=== PATIENT | female | born 1935 | race Hispanic/Latino ===

== ENCOUNTER 2019-08-06 07:50 | Inpatient (IN) | payer MEDICARE ==
[2019-08-06 08:55] LABS: Basophils % (Auto) 0.6 % (0.0-1.8); Eosinophils # (Auto) 0.1 K/mm3 (0.0-0.4); Eosinophils % (Auto) 2.8 % (0.0-4.3); Hematocrit 42.8 % (30.3-42.9); Hemoglobin 14.6 gm/dl (10.1-14.3); Lymphocytes # (Auto) 0.5 K/mm3 (1.2-5.4); Lymphocytes % (Auto) 10.9 % (13.4-35.0); Mean Corpuscular HGB Conc 34 % (30-34); Mean Corpuscular Volume 101 fl (79-97); Monocytes # (Auto) 0.3 K/mm3 (0.0-0.8); Monocytes % (Auto) 7.2 % (0.0-7.3); Red Blood Count 4.24 M/mm3 (3.65-5.03); Red Cell Distribution Width 14.2 % (13.2-15.2)
[2019-08-06] MEDS ORDERED: ONDANSETRON 4 MG/2 ML INJ IV ONE (09:02)
[2019-08-06] MEDS ORDERED: MORPHINE 2 MG/1 ML INJ IV ONE ×2 (09:02→12:08)
--- NOTE | 2019-08-06 09:03 | XRay Report ---
CHEST 1 VIEW INDICATION / CLINICAL INFORMATION: Chest Pain. COMPARISON: None available. FINDINGS: SUPPORT DEVICES: None. HEART / MEDIASTINUM: The thoracic aorta appears tortuous. Atherosclerotic calcifications are noted in the aortic arch. Surgical clips project over the right aspect of the mediastinum. LUNGS / PLEURA: There is diffuse interstitial disease in the lungs bilaterally. This could represent diffuse edema. I suspect that there is a chronic component. There is mild blunting of the right costophrenic angle characteristic of pleural thickening. There is some pleural thickening along the minor fissure on the right. .. No pneumothorax. ADDITIONAL FINDINGS: No significant additional findings. IMPRESSION: 1. There is diffuse interstitial disease in the lungs. This could represent pulmonary edema. I suspec t at least some component of this is chronic. Signer Name: Jimmie Monet MD Signed: 08/06/2019 8:59 AM Workstation Name: [id number]
[2019-08-06 09:05] LABS: INR 1.01 (0.87-1.13)
[2019-08-06 09:06] LABS: Partial Thromboplastin Time 33.3 Sec. (24.2-36.6)
--- NOTE | 2019-08-06 09:07 | Emergency Department Report ---
ED Chest Pain HPI - General Chief Complaint: Chest Pain Stated Complaint: CP/ZAN Time Seen by Provider: 08/06/19 08:14 Source: patient, EMS Mode of arrival: Stretcher Limitations: No Limitations - History of Present Illness Initial Comments: This is an 84-year-old female that has a history of COPD on nocturnal O2. Complains of bilateral anterior chest pain right greater than left with radiation to her back associated with shortness of breath at 6:00 this morning. She states that she is not had chest pain like this. She denies any cardiac workup other than having a "stress test when I was 20". She has a history of congestive heart failure. She states that both her legs are swollen. She does not refers significant cough. He does not work sweating nausea or vomiting. MD Complaint: chest pain -: Gradual, hour(s) Onset: during rest Pain Location: left chest, right chest Pain Radiation: back Severity scale (0 -10): 8 Quality: dull Consistency: constant Improves With: nothing Worsens With: nothing re: dyspnea Other Symptoms: denies: cough, fever, syncope Treatments Prior to Arrival: none - Related Data Allergies Allergy/AdvReac Type Severity Reaction Status Date / Time No Known Allergies Allergy Unverified 08/06/19 08:10 Heart Score - HEART Score History: Moderately suspicious EKG: Normal Age: > 65 Risk factors: > 3 risk factors or hx of atherosclerotic disease Troponin: < normal limit HEART Score: 5 - Critical Actions Critical Actions: 4-6 pts:12-16.6% risk of adverse cardiac event. Should be admitted ED Review of Systems ROS: Stated complaint: CP/ZAN Other details as noted in HPI Constitutional: denies: chills, fever Eyes: denies: eye pain, eye discharge, vision change ENT: denies: ear pain, throat pain Respiratory: shortness of breath. denies: cough Cardiovascular: chest pain, edema. denies: palpitations Endocrine: no symptoms reported Gastrointestinal: denies: abdominal pain, nausea, diarrhea Genitourinary: denies: urgency, dysuria, discharge Musculoskeletal: denies: back pain, joint swelling, arthralgia Skin: denies: rash, lesions Neurological: denies: headache, weakness, paresthesias Psychiatric: denies: anxiety, depression Hematological/Lymphatic: denies: easy bleeding, easy bruising ED Past Medical Hx - Past Medical History Previous Medical History?: Yes Hx Congestive Heart Failure: Yes Hx COPD: Yes - Surgical History Past Surgical History?: Yes Additional Surgical History: Right lung partial lobectomy (1/3 of lung removed) - Social History Smoking Status: Current Every Day Smoker Substance Use Type: None ED Physical Exam - General Limitations: No Limitations General appearance: alert, in no apparent distress, cachectic - Head Head exam: Present: atraumatic, normocephalic - Eye Eye exam: Present: normal appearance. Absent: scleral icterus - ENT ENT exam: Present: mucous membranes moist - Neck Neck exam: Present: normal inspection. Absent: tenderness, meningismus - Respiratory Respiratory exam: Present: normal lung sounds bilaterally. Absent: respiratory distress - Cardiovascular Cardiovascular Exam: Present: regular rate, normal rhythm. Absent: systolic murmur, diastolic murmur, rubs, gallop - GI/Abdominal GI/Abdominal exam: Present: soft, normal bowel sounds. Absent: distended, tenderness, guarding, rebound, rigid - Extremities Exam Extremities exam: Present: other (bilateral edema to the knees with pretibial erythema) - Back Exam Back exam: Present: normal inspection - Neurological Exam Neurological exam: Present: alert, oriented X3, CN II-XII intact. Absent: motor sensory deficit - Psychiatric Psychiatric exam: Present: anxious, flat affect - Skin Skin exam: Present: warm, dry, intact, normal color. Absent: rash ED Course Vital Signs 08/06/19 08/06/19 08/06/19 08:03 08:09 09:00 Temperature 97.8 F Pulse Rate 83 80 Respiratory 20 16 Rate Blood Pressure 139/82 Blood Pressure 138/67 [Right] O2 Sat by Pulse 91 91 95 Oximetry 08/06/19 08/06/19 08/06/19 09:13 10:00 11:00 Temperature Pulse Rate 86 84 Respiratory 20 18 Rate Blood Pressure Blood Pressure 122/67 130/71 [Right] O2 Sat by Pulse 97 94 94 Oximetry 08/06/19 12:00 Temperature 97.9 F Pulse Rate 84 Respiratory 20 Rate Blood Pressure Blood Pressure 135/71 [Right] O2 Sat by Pulse 94 Oximetry - Reevaluation(s) Reevaluation #2: Patient's chest x-ray was consistent with pulmonary fibrosis possibly with CHF. The radiologist believed it was consistent with CHF. She was given Lasix. The patient was found to have a very high d-dimer. A CT of the chest has been obtained but was limited secondary to IUD malfunction. The patient did not get a contrast injection. A VQ scan was ordered. Patient is admitted to the hospitalist service for further care and evaluation of her chest pain, CHF, elevated d-dimer. She has been hemodynamically stable. We are awaiting her V/Q scan results. 08/06/19 12:32 SAMAN score - Saman Score Age > 65: (1) Yes Aspirin use within the Past 7 Days: (0) No 3 or more CAD Risk Factors: (1) Yes 2 or more Angina events in past 24 hrs: (0) No Known CAD with more than 50% Stenosis: (0) No Elevated Cardiac Markers: (0) No ST Deviation Greater than 0.5mm: (0) No SAMAN Score: 2 ED Medical Decision Making - Lab Data Result diagrams: 08/06/19 08:16 08/06/19 08:30 Laboratory Results - last 24 hr 08/06/19 08/06/19 08/06/19 08:16 08:30 08:30 WBC 4.5 RBC 4.24 Hgb 14.6 H Hct 42.8 MCV 101 H MCH 35 H MCHC 34 RDW 14.2 Plt Count 217 Lymph % (Auto) 10.9 L [place] % (Auto) 7.2 Eos % (Auto) 2.8 Baso % (Auto) 0.6 Lymph # 0.5 L [place] # 0.3 Eos # 0.1 Baso # 0.0 Seg Neutrophils % 78.5 H Seg Neutrophils # 3.5 PT 13.4 INR 1.01 APTT 33.3 D-Dimer 1544.61 H Sodium 135 L Potassium 4.9 Chloride 92.3 L Carbon Dioxide 31 H Anion Gap 17 BUN 13 Creatinine 0.6 L Estimated GFR > 60 BUN/Creatinine Ratio 22 Glucose 107 H Calcium 8.9 Total Bilirubin 0.50 Direct Bilirubin < 0.2 AST 18 ALT 12 Alkaline Phosphatase 111 Total Creatine Kinase 50 CK-MB (CK-2) 3.3 CK-MB (CK-2) Rel Index 6.6 H Troponin T < 0.010 NT-Pro-B Natriuret Pep 3227 H Total Protein 7.0 Albumin 4.0 Albumin/Globulin Ratio 1.3 Laboratory Results - last 24 hr 12/08/06/19 08/06/19 08:16 08:30 08:30 WBC 4.5 RBC 4.24 Hgb 14.6 H Hct 42.8 MCV 101 H MCH 35 H MCHC 34 RDW 14.2 Plt Count 217 Lymph % (Auto) 10.9 L [place] % (Auto) 7.2 Eos % (Auto) 2.8 Baso % (Auto) 0.6 Lymph # 0.5 L [place] # 0.3 Eos # 0.1 Baso # 0.0 Seg Neutrophils % 78.5 H Seg Neutrophils # 3.5 PT 13.4 INR 1.01 APTT 33.3 D-Dimer 1544.61 H Sodium 135 L Potassium 4.9 Chloride 92.3 L Carbon Dioxide 31 H Anion Gap 17 BUN 13 Creatinine 0.6 L Estimated GFR > 60 BUN/Creatinine Ratio 22 Glucose 107 H Calcium 8.9 Total Bilirubin 0.50 Direct Bilirubin < 0.2 AST 18 ALT 12 Alkaline Phosphatase 111 Total Creatine Kinase 50 CK-MB (CK-2) 3.3 CK-MB (CK-2) Rel Index 6.6 H Troponin T < 0.010 NT-Pro-B Natriuret Pep 3227 H Total Protein 7.0 Albumin 4.0 Albumin/Globulin Ratio 1.3 Laboratory Results - last 24 hr 08/06/19 08/06/19 08/06/19 08:16 08:30 08:30 WBC 4.5 RBC 4.24 Hgb 14.6 H Hct 42.8 MCV 101 H MCH 35 H MCHC 34 RDW 14.2 Plt Count 217 Lymph % (Auto) 10.9 L [place] % (Auto) 7.2 Eos % (Auto) 2.8 Baso % (Auto) 0.6 Lymph # 0.5 L [place] # 0.3 Eos # 0.1 Baso # 0.0 Seg Neutrophils % 78.5 H Seg Neutrophils # 3.5 PT 13.4 INR 1.01 APTT 33.3 D-Dimer 1544.61 H Sodium 135 L Potassium 4.9 Chloride 92.3 L Carbon Dioxide 31 H Anion Gap 17 BUN 13 Creatinine 0.6 L Estimated GFR > 60 BUN/Creatinine Ratio 22 Glucose 107 H Calcium 8.9 Total Bilirubin 0.50 Direct Bilirubin < 0.2 AST 18 ALT 12 Alkaline Phosphatase 111 Total Creatine Kinase 50 CK-MB (CK-2) 3.3 CK-MB (CK-2) Rel Index 6.6 H Troponin T < 0.010 NT-Pro-B Natriuret Pep 3227 H Total Protein 7.0 Albumin 4.0 Albumin/Globulin Ratio 1.3 - EKG Data -: EKG Interpreted by Me EKG shows normal: sinus rhythm, axis, intervals, QRS complexes, ST-T waves Rate: normal - EKG Data Interpretation: normal EKG - Radiology Data Radiology results: report reviewed (consistent with pulmonary fibrosis), image reviewed Critical care attestation.: If time is entered above; I have spent that time in minutes in the direct care of this critically ill patient, excluding procedure time. ED Disposition Clinical Impression: Elevated d-dimer Chest pain Qualifiers: Chest pain type: unspecified Qualified Code(s): R07.9 - Chest pain, unspecified Congestive heart failure Qualifiers: Heart failure type: unspecified Heart failure chronicity: acute on chronic Reg lified Code(s): I50.9 - Heart failure, unspecified COPD (chronic obstructive pulmonary disease) Qualifiers: COPD type: unspecified COPD Qualified Code(s): J44.9 - Chronic obstructive pulmonary disease, unspecified Respiratory failure with hypoxia Qualifiers: Chronicity: acute on chronic Qualified Code(s): J96.21 - Acute and chronic respiratory failure with hypoxia Disposition: DC-09 OP ADMIT IP TO THIS HOSP Is pt being admited?: Yes Does the pt Need Aspirin: Yes Condition: Stable Instructions: Chest Pain (ED), Chronic Obstructive Pulmonary Disease (ED) Referrals: PRIMARY CARE, [Referring] - 3-5 Days Time of Disposition: 12:43
[2019-08-06 09:15] LABS: Creatine Kinase MB 3.3 ng/mL (0.0-4.0)
[2019-08-06 09:18] LABS: Alanine Aminotransferase 12 units/L (7-56); BUN/Creatinine Ratio 22; Blood Urea Nitrogen 13 mg/dL (7-17); Calcium 8.9 mg/dL (8.4-10.2); Hemolysis Index 9
[2019-08-06 09:21] LABS: Bilirubin,Direct < 0.2 mg/dL (0-0.2)
[2019-08-06 09:57] LABS: Platelet Count 217 K/mm3 (140-440)
[2019-08-06] MEDS ORDERED: FUROSEMIDE 40 MG/4 ML INJ IV ONE ×2 (11:10→11:36)
[2019-08-06] MEDS ORDERED: MORPHINE 2 MG/1 ML INJ ONE (12:03)
[2019-08-06] MEDS ORDERED: ASPIRIN 325 MG TAB PO ONE (12:43)
--- NOTE | 2019-08-06 12:44 | History and Physical Report ---
History of Present Illness Chief complaint: I bandar breathe History of present illness: 84 YO Female with Chronic Respiratory Failure on Home Oxygen, COPD, Severe Malnutrition, CHF, Nicotine Dependence presents to ED for evaluation. Pt is in respiratory distress and in unable to speak in complete sentences and is unable to provide history. Pt history provided by patient son who is at bedside during exam and interview. As per son, the patient has experienced worsening shortness of breath over the past 3 days with worsening symptoms beginning upon awakening from sleep around 0600hrs. Pt also reports chest discomfort with deep breathing. Past History Past Medical History: COPD, heart failure, other (see HPI) Past Surgical History: Other (Lung lobectomy) Social history: single, smoking. denies: alcohol abuse, prescription drug abuse Family history: hypertension Medications and Allergies Allergies Allergy/AdvReac Type Severity Reaction Status Date / Time No Known Allergies Allergy Unverified 08/06/19 08:10 Review of Systems Constitutional: no weight gain, no fever, no chills Ears, nose, mouth and throat: no ear pain, no ear discharge, no nasal discharge Breasts: no change in shape, no swelling, no mass Cardiovascular: no chest pain, no orthopnea, no palpitations Respiratory: shortness of breath, congestion, pain on inspiration, home oxygen, no excessive sputum, no hemoptysis Gastrointestinal: no nausea, no vomiting, no diarrhea, no constipation Genitourinary Female: no pelvic pain, no flank pain, no menorrhagia, no dysuria, no urinary frequency, no urgency, no post void dribbling Rectal: no pain, no incontinence, no bleeding Musculoskeletal: no neck stiffness, no neck pain, no shooting arm pain, no arm numbness/tingling, no low back pain, no shooting leg pain, no leg numbness/tingling Integumentary: no rash, no pruritis, no redness, no sores, no jaundice Neurological: no paralysis, no weakness, no parathesias, no numbness, no seizure s, no tremors Psychiatric: no anxiety, no memory loss, no change in sleep habits, no hypersomnia, no change in appetite, no suicidal ideation, no disorientation Endocrine: no cold intolerance, no heat intolerance, no polyphagia, no excessive thirst, no polyuria, no nocturia Hematologic/Lymphatic: no easy bruising, no easy bleeding, no lymphadenopathy, no lymphedema Allergic/Immunologic: no urticaria, no allergic rhinitis, no wheezing, no persistent infections, no anaphylaxis Exam - Constitutional Vitals: Temp Pulse Resp BP Pulse Ox 97.9 F 84 20 135/71 94 08/06/19 12:00 08/06/19 12:00 08/06/19 12:00 08/06/19 12:00 08/06/19 12:00 General appearance: Present: severe distress, cachectic - EENT Eyes: Present: PERRL ENT: hearing intact, clear oral mucosa - Neck Neck: Present: supple, normal ROM - Respiratory Respiratory effort: labored, accessory muscle use, stridor Respiratory: left: diminished, rhonchi, bilateral: CTA - Cardiovascular Heart Sounds: Present: S1 & S2. Absent: rub, click - Extremities Extremities: pulses symmetrical, No edema Peripheral Pulses: within normal limits - Abdominal General gastrointestinal: Present: soft, non-tender, non-distended, normal bowel sounds Female genitourinary: Present: normal - Integumentary Integumentary: Present: clear, warm, dry - Musculoskeletal Musculoskeletal: generalized weakness - Psychiatric Psychiatric: appropriate mood/affect, intact judgment & insight, agitated - Neurologic Neurologic: CNII-XII intact, moves all extremities Results - Labs CBC & Chem 7: 08/06/19 08:16 08/06/19 08:30 Labs: Abnormal lab results 08/06/19 08/06/19 08/06/19 Range/Units 08:16 08:30 08:30 Hgb 14.6 H (10.1-14.3) gm/dl MCV 101 H (79-97) fl MCH 35 H (28-32) pg Lymph % (Auto) 10.9 L (13.4-35.0) % Lymph # 0.5 L (1.2-5.4) K/mm3 Seg Neutrophils % 78.5 H (40.0-70.0) % D-Dimer 1544.61 H (0-234) ng/mlDDU Sodium 135 L (137-145) mmol/L Chloride 92.3 L (98-107) mmol/L Carbon Dioxide 31 H (22-30) mmol/L Creatinine 0.6 L (0.7-1.2) mg/dL Glucose 107 H (65-100) mg/dL CK-MB (CK-2) Rel Index 6.6 H (0-4) NT-Pro-B Natriuret Pep 3227 H (0-900) pg/mL Assessment and Plan - Patient Problems (1) Acute and chronic respiratory failure Current Visit: Yes Status: Acute Qualifiers: Respiratory failure complication: hypoxia Qualified Code(s): J96.21 - Acute and chronic respiratory failure with hypoxia Plan to address problem: Admit to IMCU, supplemental oxygen, nebulizer therapy, NIPPV as clinically indicated, pulse oximetry, chest x ray, CT angio chest, pulmonary consulted, ABG, (2) Pulmonary fibrosis Current Visit: Yes Status: Acute Plan to address problem: CTA chest, IV steroid therapy, pulmonary consulted, (3) Pulmonary hypertension Current Visit: Yes Status: Acute Plan to address problem: supplemental oxygen, nebulizer therapy, Echo to evaluated PA pressure, vasodilator therapy as per pulmonary team as clinically indicated. (4) Advance care planning Current Visit: Yes Status: Acute Plan to address problem: Pt is full code, Diagnosis education conducted in ED, Pt son acknowledges understanding and agreement with care plan. +30min (5) Nicotine dependence Current Visit: Yes Status: Acute Qualifiers: Substance use status: in withdrawal Plan to address problem: supportive care, smoking cessation counseling +15min (6) DVT prophylaxis Current Visit: Yes Status: Acute Plan to address problem: SCD to BLE while in bed, Prophylactic heparin
--- NOTE | 2019-08-06 12:44 | Cat Scan Report ---
CTA CHEST WITH IV CONTRAST INDICATION: CP elevated dimer. TECHNIQUE: Axial CT images were obtained through the chest after injection of IV contrast. 3 plane MIP reconstru ctions were produced. All CT scans at this location are performed using CT dose reduction for ALARA b y means of automated exposure control. COMPARISON: None available. FINDINGS: Contrast opacification of pulmonary arteries is poor. Seen is also limited secondary to mod erate respiratory motion artifact. PULMONARY ARTERIES: No large central pulmonary embolus within right or left pulmonary arteries or the ir lobar branches. Segmental pulmonary arteries are not well evaluated. THORACIC AORTA: Extensive vascular calcifications within nonaneurysmal thoracic aorta HEART: Cardiomegaly CORONARY ARTERIES: Moderate coronary artery calcifications PLEURA: Right apical pleural-parenchymal scarring. No pleural effusion. No pneumothorax. LYMPH NODES: No significant adenopathy. LUNGS: Extensive diffuse interstitial prominence. ADDITIONAL FINDINGS: None. UPPER ABDOMEN: No acute findings. SKELETAL STRUCTURES: Osteopenia with multiple old compression fractures of thoracolumbar spine extend ing from T10 through L2 IMPRESSION: 1. No CT evidence for large central pulmonary embolus 2. Cardiomegaly with moderate interstitial prominence likely secondary to interstitial edema 3. Osteopenia with multiple old compression fractures of thoracolumbar spine Signer Name: Alex Sarabia MD Signed: 08/06/2019 12:40 PM Workstation Name: [id number]
--- NOTE | 2019-08-06 13:08 | Nuclear Medicine Report ---
V/Q Scan HISTORY: cp elevated dimer. TECHNIQUE: Patient was given 22.1 mCi of xenon-133 and 4.9 mCi of technetium MAA. COMPARISON: Chest x-ray from earlier today FINDINGS: Ventilation portion of the exam shows symmetric radiotracer uptake in the lungs with reten tion on the delayed images. The perfusion portion of the exam shows linear photopenic areas represent ing pleural thickening/fluid bilaterally coursing along the fissures. There is otherwise no significa nt mismatch between ventilation and perfusion. IMPRESSION: Low probability for PTE. Signer Name: Ramsey Vinson MD Signed: 08/06/2019 1:04 PM Workstation Name: [id number]
[2019-08-06] MEDS ORDERED: METOCLOPRAMIDE 10 MG TAB PO PRN ×2 (13:27→13:33)
[2019-08-06] MEDS ORDERED: PROMETHAZINE 25 MG RECT SUPP PR PRN ×2 (13:27→13:33)
[2019-08-06] MEDS ORDERED: ONDANSETRON 4 MG/2 ML INJ IV PRN ×2 (13:27→13:33)
[2019-08-06] MEDS ORDERED: ACETAMINOPHEN 325 MG TAB PO PRN ×2 (13:27→13:33)
[2019-08-06] MEDS ORDERED: MAGNESIUM HYDROXIDE (MOM) ORAL LIQD UDC PO PRN ×2 (13:27→13:33)
[2019-08-06] MEDS ORDERED: ALBUTEROL 2.5 MG/3 ML NEBU IH PRN (13:33)
[2019-08-06] MEDS ORDERED: FUROSEMIDE 20 MG/2 ML INJ ONE (17:52)
[2019-08-06 18:06] LABS: Free T4 (Free Thyroxine) 1.15 ng/dL (0.76-1.46)
[2019-08-06] MEDS: FUROSEMIDE 20 MG/2 ML INJ IV SCH (18:35)
[2019-08-06] MEDS: HEPARIN 5,000 UNIT/1 ML VIAL SUB-Q SCH (23:22)
[2019-08-07 06:54] LABS: Alanine Aminotransferase 16 units/L (7-56); Albumin 3.2 g/dL (3.9-5); BUN/Creatinine Ratio 26; Blood Urea Nitrogen 13 mg/dL (7-17); Calcium 8.2 mg/dL (8.4-10.2); Hemolysis Index 10
[2019-08-07] MEDS: FUROSEMIDE 20 MG/2 ML INJ IV SCH ×2 (08:59→18:50)
[2019-08-07 09:34] LABS: Basophils % (Auto) 0.7 % (0.0-1.8); Eosinophils # (Auto) 0.1 K/mm3 (0.0-0.4); Eosinophils % (Auto) 1.7 % (0.0-4.3); Hematocrit 43.3 % (30.3-42.9); Hemoglobin 14.3 gm/dl (10.1-14.3); Lymphocytes # (Auto) 0.4 K/mm3 (1.2-5.4); Lymphocytes % (Auto) 8.3 % (13.4-35.0); Mean Corpuscular HGB Conc 33 % (30-34); Mean Corpuscular Volume 103 fl (79-97); Monocytes # (Auto) 0.3 K/mm3 (0.0-0.8); Monocytes % (Auto) 6.7 % (0.0-7.3); Platelet Count 189 K/mm3 (140-440); Red Blood Count 4.22 M/mm3 (3.65-5.03); Red Cell Distribution Width 14.5 % (13.2-15.2)
[2019-08-07] MEDS ORDERED: ASPIRIN 325 MG TAB PO SCH ×2 (10:00)
[2019-08-07] MEDS: HEPARIN 5,000 UNIT/1 ML VIAL SUB-Q SCH ×2 (10:00→22:09)
--- NOTE | 2019-08-07 12:09 | Progress Note ---
Subjective Date of service: 08/07/19 Interval history: 84 y/o female admitted with respiratory failure and chest pain Objective - Constitutional Vitals: Vital Signs - 12hr 08/07/19 08/07/19 08/07/19 00:11 00:21 00:31 Temperature Pulse Rate 84 80 81 Respiratory 14 14 15 Rate Blood Pressure 102/58 102/58 102/58 O2 Sat by Pulse 92 92 92 Oximetry 08/07/19 08/07/19 08/07/19 00:41 00:51 01:01 Temperature Pulse Rate 84 88 103 H Respiratory 15 16 39 H Rate Blood Pressure 102/58 102/58 140/96 O2 Sat by Pulse 87 77 L 79 L Oximetry 08/07/19 08/07/19 08/07/19 01:11 01:38 01:41 Temperature Pulse Rate 90 96 H Respiratory 15 17 Rate Blood Pressure 140/96 140/96 140/96 O2 Sat by Pulse 85 Oximetry 08/07/19 08/07/19 08/07/19 01:51 02:00 02:11 Temperature Pulse Rate 93 H 92 H 84 Respiratory 17 20 17 Rate Blood Pressure 140/96 101/54 O2 Sat by Pulse Oximetry 08/07/19 08/07/19 08/07/19 02:21 02:31 02:41 Temperature Pulse Rate 85 80 81 Respiratory 19 18 18 Rate Blood Pressure O2 Sat by Pulse 87 89 Oximetry 08/07/19 08/07/19 08/07/19 02:51 03:00 03:11 Temperature Pulse Rate 81 83 78 Respiratory 17 17 17 Rate Blood Pressure 85/45 88/44 O2 Sat by Pulse 89 87 90 Oximetry 08/07/19 08/07/19 08/07/19 03:21 03:31 03:41 Temperature Pulse Rate 81 80 90 Respiratory 17 16 16 Rate Blood Pressure 88/44 88/44 88/44 O2 Sat by Pulse 90 92 92 Oximetry 08/07/19 08/07/19 08/07/19 03:43 03:51 03:57 Temperature 98.4 F Pulse Rate 87 81 Respiratory 20 26 H Rate Blood Pressure 88/44 88/44 O2 Sat by Pulse 93 92 Oximetry 08/07/19 08/07/19 08/07/19 04:00 04:11 04:21 Temperature Pulse Rate 82 82 82 Respiratory 17 23 19 Rate Blood Pressure 101/50 101/50 101/50 O2 Sat by Pulse 92 93 92 Oximetry 08/07/19 08/07/19 08/07/19 04:31 04:41 04:51 Temperature Pulse Rate 87 85 86 Respiratory 20 21 17 Rate Blood Pressure 101/50 101/50 101/50 O2 Sat by Pulse 93 92 92 Oximetry 08/07/19 08/07/19 08/07/19 05:00 05:03 05:11 Temperature Pulse Rate 90 90 Respiratory 15 19 20 Rate Blood Pressure 109/49 109/49 O2 Sat by Pulse 94 93 94 Oximetry 08/07/19 08/07/19 08/07/19 05:20 05:31 05:41 Temperature Pulse Rate 79 87 80 Respiratory 18 21 18 Rate Blood Pressure 109/49 O2 Sat by Pulse 94 93 94 Oximetry 08/07/19 08/07/19 08/07/19 05:50 06:00 06:11 Temperature Pulse Rate 81 83 79 Respiratory 19 20 18 Rate Blood Pressure 109/49 92/49 109/49 O2 Sat by Pulse 92 93 94 Oximetry 08/07/19 08/07/19 08/07/19 06:20 06:31 06:41 Temperature Pulse Rate 83 86 86 Respiratory 24 23 24 Rate Blood Pressure 92/49 109/49 92/49 O2 Sat by Pulse 93 95 94 Oximetry 08/07/19 08/07/19 08/07/19 06:51 07:00 07:11 Temperature Pulse Rate 95 H 93 H 130 H Respiratory 24 27 H 24 Rate Blood Pressure 92/49 114/63 114/63 O2 Sat by Pulse 96 80 L 96 Oximetry 08/07/19 08/07/19 08/07/19 07:21 07:31 07:41 Temperature Pulse Rate 91 H 84 83 Respiratory 26 H 16 21 Rate Blood Pressure 114/63 114/63 114/63 O2 Sat by Pulse 93 93 95 Oximetry 08/07/19 08/07/19 08/07/19 07:51 08:00 08:11 Temperature 97.0 F L Pulse Rate 93 H 82 82 Respiratory 24 20 18 Rate Blood Pressure 114/63 112/60 112/60 O2 Sat by Pulse 94 95 93 Oximetry 08/07/19 08/07/19 08/07/19 08:21 08:31 08:41 Temperature Pulse Rate 86 86 90 Respiratory 21 21 20 Rate Blood Pressure 112/60 112/60 112/60 O2 Sat by Pulse 91 95 92 Oximetry 08/07/19 08/07/19 08/07/19 08:51 09:00 09:09 Temperature Pulse Rate 90 91 H Respiratory 29 H 23 Rate Blood Pressure 112/60 114/72 O2 Sat by Pulse 94 88 94 Oximetry 08/07/19 08/07/19 08/07/19 09:11 09:21 09:31 Temperature Pulse Rate 89 87 89 Respiratory 18 16 24 Rate Blood Pressure 114/72 114/72 114/72 O2 Sat by Pulse 89 94 93 Oximetry 08/07/19 08/07/19 08/07/19 09:41 09:51 10:00 Temperature Pulse Rate 86 83 95 H Respiratory 13 18 17 Rate Blood Pressure 114/72 114/72 126/63 O2 Sat by Pulse 92 95 Oximetry 08/07/19 08/07/19 08/07/19 10:11 10:21 10:31 Temperature Pulse Rate 100 H 88 90 Respiratory 23 25 H 21 Rate Blood Pressure 126/63 126/63 126/63 O2 Sat by Pulse 93 96 83 L Oximetry 08/07/19 08/07/19 08/07/19 10:40 10:50 11:00 Temperature Pulse Rate 86 85 88 Respiratory 16 22 20 Rate Blood Pressure 126/63 126/63 106/58 O2 Sat by Pulse 96 94 92 Oximetry 08/07/19 08/07/19 08/07/19 11:10 11:20 11:30 Temperature Pulse Rate 95 H 87 98 H Respiratory 22 13 32 H Rate Blood Pressure 126/63 126/63 126/63 O2 Sat by Pulse 97 95 96 Oximetry - Labs CBC & Chem 7: 08/07/19 04:53 08/07/19 04:53 Labs: Abnormal lab results 08/06/19 08/07/19 08/07/19 Range/Units 17:10 04:53 04:53 Hct 43.3 H (30.3-42.9) % MCV 103 H (79-97) fl MCH 34 H (28-32) pg Lymph % (Auto) 8.3 L (13.4-35.0) % Lymph # 0.4 L (1.2-5.4) K/mm3 Seg Neutrophils % 82.6 H (40.0-70.0) % POC ABG pH 7.226 L (7.35-7.45) POC ABG pO2 69 L (80-105) Chloride 91.8 L (98-107) mmol/L Carbon Dioxide 33 H (22-30) mmol/L Creatinine 0.5 L (0.7-1.2) mg/dL Calcium 8.2 L (8.4-10.2) mg/dL Albumin 3.2 L (3.9-5) g/dL Medications & Allergies - Medications Allergies/Adverse Reactions: Allergies No Known Allergies Allergy (Unverified 08/06/19 08:10) Active Medications: Generic Name Dose Route Start Last Admin Trade Name Freq PRN Reason Stop Dose Admin Furosemide 20 mg 08/06/19 18:00 08/07/19 08:59 Lasix IV 20 mg BID@0600,1800 MIKEL Administration Heparin Sodium (Porcine) 5,000 unit 08/06/19 22:00 08/07/19 10:00 Heparin SUB-Q 5,000 unit Q12HR MIKEL Administration Methylprednisolone Sodium Succinate 60 mg 08/07/19 14:00 Solu-Medrol IV Q8HR MIKEL Sodium Chloride 10 ml 08/06/19 22:00 08/07/19 11:29 Sodium Chloride Flush Syringe 10 Ml IV Not Given BID MIKEL Sodium Chloride 10 ml 08/06/19 13:54 Sodium Chloride Flush Syringe 10 Ml IV PRN PRN LINE FLUSH
[2019-08-07] MEDS: methylPREDNISolone Sod Succinate 125 MG/2 ML INJ IV SCH ×2 (14:20→22:09)
--- NOTE | 2019-08-07 14:32 | Consultation ---
History of Present Illness Consult date: 08/07/19 Consult reason: congestive heart failure History of present illness: This is a 84-year old woman with chronic lung disease, chronic respiratory f ailure on home oxygen who presented with complaints of chest pain and worsening shortness of breath. Chest x-ray reports changes of chronic lung disease. Chest CT is negative for pulmonary embolus. Cycled troponins are negative. An ECG is sinus rhythm with low voltage. A cardiac consultation has been requested for CHF evaluation. Past History Past Medical History: COPD, heart failure, other (see HPI) Past Surgical History: Other (Lung lobectomy) Social history: single, smoking. denies: alcohol abuse, prescription drug abuse Family history: hypertension Medications and Allergies Allergies Allergy/AdvReac Type Severity Reaction Status Date / Time No Known Allergies Allergy Unverified 08/06/19 08:10 Active Meds: Active Medications Furosemide (Lasix) 20 mg IV BID@0600,1800 [facility] Last Admin: 08/07/19 08:59 Dose: 20 mg Documented by: Heparin Sodium (Porcine) (Heparin) 5,000 unit SUB-Q Q12HR [facility] Last Admin: 08/07/19 10:00 Dose: 5,000 unit Documented by: Methylprednisolone Sodium Succinate (Solu-Medrol) 60 mg IV Q8HR [facility] Last Admin: 08/07/19 14:20 Dose: 60 mg Documented by: Sodium Chloride (Sodium Chloride Flush Syringe 10 Ml) 10 ml IV BID [facility] Last Admin: 08/07/19 11:29 Dose: Not Given Documented by: Sodium Chloride (Sodium Chloride Flush Syringe 10 Ml) 10 ml IV PRN PRN PRN Reason: LINE FLUSH Physical Examination Vital Signs Temp Pulse Resp BP Pulse Ox 97.8 F 83 20 139/82 91 08/06/19 08:03 08/06/19 08:03 08/06/19 08:03 08/06/19 08:03 08/06/19 08:03 General appearance: no acute distress HEENT: Positive: PERRL Neck: Positive: trachea midline Cardiac: Positive: Reg Rate and Rhythm Lungs: Positive: Decreased Breath Sounds Results 08/07/19 04:53 08/07/19 04:53 Cardiac Enzymes 08/07/19 Range/Units 04:53 AST 22 (5-40) units/L CBC 08/07/19 Range/Units 04:53 WBC 4.6 (4.5-11.0) K/mm3 RBC 4.22 (3.65-5.03) M/mm3 Hgb 14.3 (10.1-14.3) gm/dl Hct 43.3 H (30.3-42.9) % Plt Count 189 (140-440) K/mm3 Lymph # 0.4 L (1.2-5.4) K/mm3 [place] # 0.3 (0.0-0.8) K/mm3 Eos # 0.1 (0.0-0.4) K/mm3 Baso # 0.0 (0.0-0.1) K/mm3 Comprehensive Metabolic Panel 08/07/19 Range/Units 04:53 Sodium 137 (137-145) mmol/L Potassium 4.3 (3.6-5.0) mmol/L Chloride 91.8 L (98-107) mmol/L Carbon Dioxide 33 H (22-30) mmol/L BUN 13 (7-17) mg/dL Creatinine 0.5 L (0.7-1.2) mg/dL Glucose 91 (65-100) mg/dL Calcium 8.2 L (8.4-10.2) mg/dL AST 22 (5-40) units/L ALT 16 (7-56) units/L Alkaline Phosphatase 109 (35-129) units/L Total Protein 6.5 (6.3-8.2) g/dL Albumin 3.2 L (3.9-5) g/dL
--- NOTE | 2019-08-07 17:02 | Progress Note ---
Assessment and Plan Assessment and plan: Patient is a 84 yo woman with a history of Chronic hypoxic Respiratory Failure on Home Oxygen, COPD, Severe Malnutrition, CHF, Nicotine Dependence presents to ED for evaluation. Pt is in respiratory distress and in unable to speak in complete sentences and is unable to provide history. Pt history provided by patient son who is at bedside during exam and interview. As per son, the patient has experienced worsening shortness of breath over the past 3 days with worsening symptoms beginning upon awakening from sleep around 0600hrs. Pt also reports chest discomfort with deep breathing. (1) Acute and chronic respiratory failure Current Visit: Yes Status: Acute Qualifiers: Respiratory failure complication: hypoxia Qualified Code(s): J96.21 - Acute and chronic respiratory failure with hypoxia Plan to address problem: Admit to IMCU, supplemental oxygen, nebulizer therapy, NIPPV as clinically indicated, pulse oximetry, chest x ray, CT angio chest, pulmonary consulted, ABG, (2) Pulmonary fibrosis Current Visit: Yes Status: Acute Plan to address problem: CTA chest reviewed, no PE, IV steroid therapy, pulmonary consulted, (3) Pulmonary hypertension Current Visit: Yes Status: Acute Plan to address problem: supplemental oxygen, nebulizer therapy, Echo to evaluated PA pressure, vasodilator therapy as per pulmonary team as clinically indicated. (4) Advance care planning Current Visit: Yes Status: Acute Plan to address problem: Pt is full code, Diagnosis education conducted in ED, Pt son acknowledges understanding and agreement with care plan. +30min (5) Nicotine dependence Current Visit: Yes Status: Acute Qualifiers: Substance use status: in withdrawal Plan to address problem: supportive care, smoking cessation counseling +15min (6) DVT prophylaxis Current Visit: Yes Status: Acute Plan to address problem: SCD to BLE while in bed, Prophylactic heparin CCT 35 minutes History Interval history: Patient was seen and examined. Follow-up on current diagnosis. No overnight events reported to me. Patient denies any chest pain, shortness breath, nausea/vomiting or severe headaches. Imaging, nursing note, chart, labs and old chart reviewed. Discussed with patient. SonElías at bedside, bipap removed this morning, on 6 liters. Hospitalist Physical - Physical exam Narrative exam: Gen: thin cachetic, moderate increase accessory muscles, Awake, Alert, Orientated HEENT: NCAT, EOMI, PERRL, OP Clear Neck: supple, no adenopathy, no thyromegaly, no JVD CVS/Heart: RRR, normal S1S2, pulses present bilaterally Chest/Lungs: diminished, Symmetrical chest expansion, good air entry bilaterally GI/Abdomen: soft, NTND, good bowel sounds, no guarding or rebound /Bladder: no suprapubic tenderness, no CVA or paraspinal tenderness Extermity/Skin: no c/c/e, no obvious rash MSK: FROM x 4 Neuro: CN 2-12 grossly intact, no new focal deficits Psych: calm - Constitutional Vitals: Temp Pulse Resp BP Pulse Ox 98.3 F 79 16 89/60 72 L 08/07/19 16:00 08/07/19 14:00 08/07/19 14:00 08/07/19 14:00 08/07/19 14:00 General appearance: Present: no acute distress Results - Labs CBC & Chem 7: 08/07/19 04:53 08/07/19 04:53 Labs: Laboratory Last Values WBC 4.6 K/mm3 (4.5-11.0) 08/07/19 04:53 RBC 4.22 M/mm3 (3.65-5.03) 08/07/19 04:53 Hgb 14.3 gm/dl (10.1-14.3) 08/07/19 04:53 Hct 43.3 % (30.3-42.9) H 08/07/19 04:53 MCV 103 fl (79-97) H 08/07/19 04:53 MCH 34 pg (28-32) H 08/07/19 04:53 MCHC 33 % (30-34) 08/07/19 04:53 RDW 14.5 % (13.2-15.2) 08/07/19 04:53 Plt Count 189 K/mm3 (140-440) 08/07/19 04:53 Lymph % (Auto) 8.3 % (13.4-35.0) L 08/07/19 04:53 [place] % (Auto) 6.7 % (0.0-7.3) 08/07/19 04:53 Eos % (Auto) 1.7 % (0.0-4.3) 08/07/19 04:53 Baso % (Auto) 0.7 % (0.0-1.8) 08/07/19 04:53 Lymph # 0.4 K/mm3 (1.2-5.4) L 08/07/19 04:53 [place] # 0.3 K/mm3 (0.0-0.8) 08/07/19 04:53 Eos # 0.1 K/mm3 (0.0-0.4) 08/07/19 04:53 Baso # 0.0 K/mm3 (0.0-0.1) 08/07/19 04:53 Seg Neutrophils % 82.6 % (40.0-70.0) H 08/07/19 04:53 Seg Neutrophils # 3.8 K/mm3 (1.8-7.7) 08/07/19 04:53 PT 13.4 Sec. (12.2-14.9) 08/06/19 08:30 INR 1.01 (0.87-1.13) 08/06/19 08:30 APTT 33.3 Sec. (24.2-36.6) 08/06/19 08:30 D-Dimer 1544.61 ng/mlDDU (0-234) H 08/06/19 08:30 POC ABG pH 7.226 (7.35-7.45) L 08/06/19 17:10 POC ABG pO2 69 (80-105) L 08/06/19 17:10 POC ABG HCO3 41.1 (22-26 mml/L) 08/06/19 17:10 POC ABG Total CO2 44 (23-27mmol/L) 08/06/19 17:10 POC ABG O2 Sat 88 08/06/19 17:10 POC ABG Base Excess 13 ((-2) - (+3)mmol/L) 08/06/19 17:10 FiO2 35 % 08/06/19 17:10 Sodium 137 mmol/L (137-145) 08/07/19 04:53 Potassium 4.3 mmol/L (3.6-5.0) 08/07/19 04:53 Chloride 91.8 mmol/L (98-107) L 08/07/19 04:53 Carbon Dioxide 33 mmol/L (22-30) H 08/07/19 04:53 Anion Gap 17 mmol/L 08/07/19 04:53 BUN 13 mg/dL (7-17) 08/07/19 04:53 Creatinine 0.5 mg/dL (0.7-1.2) L 08/07/19 04:53 Estimated GFR > 60 ml/min 08/07/19 04:53 BUN/Creatinine Ratio 26 % 08/07/19 04:53 Glucose 91 mg/dL (65-100) 08/07/19 04:53 Calcium 8.2 mg/dL (8.4-10.2) L 08/07/19 04:53 Magnesium 2.20 mg/dL (1.7-2.3) 08/06/19 17:02 Total Bilirubin 0.60 mg/dL (0.1-1.2) 08/07/19 04:53 Direct Bilirubin < 0.2 mg/dL (0-0.2) 08/06/19 08:30 AST 22 units/L (5-40) 08/07/19 04:53 ALT 16 units/L (7-56) 08/07/19 04:53 Alkaline Phosphatase 109 units/L (35-129) 08/07/19 04:53 Total Creatine Kinase 50 units/L (30-135) 08/06/19 08:30 CK-MB (CK-2) 3.3 ng/mL (0.0-4.0) 08/06/19 08:30 CK-MB (CK-2) Rel Index 6.6 (0-4) H 08/06/19 08:30 Troponin T < 0.010 ng/mL (0.00-0.029) 08/06/19 17:02 NT-Pro-B Natriuret Pep 3227 pg/mL (0-900) H 08/06/19 08:30 Total Protein 6.5 g/dL (6.3-8.2) 08/07/19 04:53 Albumin 3.2 g/dL (3.9-5) L 08/07/19 04:53 Albumin/Globulin Ratio 1.0 % 08/07/19 04:53 TSH 1.220 mlU/mL (0.270-4.200) 08/06/19 17:02 Free T4 1.15 ng/dL (0.76-1.46) 08/06/19 17:02 Active Medications - Current Medications Current Medications: Generic Name Dose Route Start Last Admin Trade Name Freq PRN Reason Stop Dose Admin Furosemide 20 mg 08/06/19 18:00 08/07/19 08:59 Lasix IV 20 mg BID@0600,1800 [facility] Administration Heparin Sodium (Porcine) 5,000 unit 08/06/19 22:00 08/07/19 10:00 Heparin SUB-Q 5,000 unit Q12HR [facility]KEL Administration Methylprednisolone Sodium Succinate 60 mg 08/07/19 14:00 08/07/19 14:20 Solu-Medrol IV 60 mg Q8HR MIKEL Administration Sodium Chloride 10 ml 08/06/19 22:00 08/07/19 11:29 Sodium Chloride Flush Syringe 10 Ml IV Not Given BID MIKEL Sodium Chloride 10 ml 08/06/19 13:54 Sodium Chloride Flush Syringe 10 Ml IV PRN PRN LINE FLUSH Nutrition/Malnutrition Assess - Dietary Evaluation Nutrition/Malnutrition Findings: Nutrition Notes Start: 08/07/19 10:24 Freq: Status: Active Protocol: Document 08/07/19 10:24 CT (Rec: 08/07/19 10:37 CT [id number]) Co-Sign 08/07/19 10:24 Nutrition Notes Need for Assessment generated from: director career,MST Initial or Follow up Assessment Current Diagnosis COPD,Heart Failure,Respiratory Failure,Malnutrition Other Pertinent Diagnosis nicotene dependence, s/p lung lobectomy, pulmonary fibrosis Current Diet NPO Labs/Tests Cr 0.5 Pertinent Medications Lasix Height 5 ft 7 in Weight 58.7 kg Usual Body Weight 56.699 kg [place] Body Weight (kg) 61.36 BMI 20.2 Intake Prior to Admission Good Weight Status Appropriate Subjective/Other Information RN screen for MST score of 3. Pt stated UBW is 125 lbs and has not noticed any wt loss. 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 Per RN, waiting on MD to advance diet, gave recommendation for cardiac diet with ensure chocolate BID . Pt last ate a meal on Tuesday for lunch and has a good appetite, stating that she is hungry. Noted severe clavicle wasting and temporal and orbital wasting. Pt stated that if she has her dentures, she has no issues chewing. Pt son stated pt drinks around 2 ensure every day at home, pt stated she wanted ensure. Burn Absent Trauma Absent GI Symptoms None Food Allergy No Current % PO Negligible Minimum of two criteria Yes Body Fat Depletion Moderate depletion (severe) Muscle Mass Moderate Depletion (severe) #1 Nutrition Diagnosis Malnutrition Etiology advanced age As Evidenced by Signs and Symptoms severe muscle and moderate fat depletion Is patient on ventilator? No Is Patient Ambulatory and/or Out of Bed Yes REE-([facility]-ambulatory/OOB) [ 1403.519 NUTR.MSJOOB] Calculation Used for Recommendations [facility] Additional Notes Protein needs: 75-88 g/kg/day (1.2-1.5 g/kg/day) Fluid needs: 1 ml/kcal/day Nutrition Intervention Change Diet Order: Diet advancement to cardiac diet once medically feasible Add Supplement/Snack (indicate name/kcal Add Ensure chocolate BID once /protein ) diet advances Provides kCal: 700 Provides Protein (gm) 40 Goal #1 Meet >75% of energy and protein needs Goal #2 wt maintenance Anticipated Discharge Needs: cardiac with ONS PRN Follow-Up By: 08/09/19 Additional Comments Follow up for diet advancement , PO/ONS intakes Order Ensure chocolate BID
--- NOTE | 2019-08-07 18:30 | Consultation ---
History of Present Illness Consult date: 08/07/19 Requesting physician: JUAN CLARK Reason for consult: hypoxemia, pulmonary fibrosis, abnormal CXR/CT History of present illness: 84 y/o female admitted with diffficulty in breathing. Follows with Perfecto in the office. Required bipap therapy but has since been weaned down to nasal cannula. Some pulmonary edema thought to be seen and some GGO's on CT scan so started on BID lasix therapy. Past History Past Medical History: COPD, heart failure, other (see HPI) Past Surgical History: Other (Lung lobectomy) Social history: single, smoking. denies: alcohol abuse, prescription drug abuse Family history: hypertension Medications and Allergies Allergies Allergy/AdvReac Type Severity Reaction Status Date / Time No Known Allergies Allergy Unverified 08/06/19 08:10 Active Meds: Active Medications Benzonatate (Tessalon Perles) 100 mg PO Q8HR [facility] Furosemide (Lasix) 20 mg IV BID@0600,1800 [facility] Last Admin: 08/07/19 08:59 Dose: 20 mg Documented by: Guaifenesin (Mucinex Er) 600 mg PO BID MIKEL Heparin Sodium (Porcine) (Heparin) 5,000 unit SUB-Q Q12HR [facility] Last Admin: 08/07/19 10:00 Dose: 5,000 unit Documented by: Ceftriaxone Sodium (Rocephin/Ns 1 Gm/50 Ml) 1 gm in 50 mls @ 100 mls/hr IV Q24HR [facility]KEL; Protocol Methylprednisolone Sodium Succinate (Solu-Medrol) 60 mg IV Q8HR [facility] Last Admin: 08/07/19 14:20 Dose: 60 mg Documented by: Sodium Chloride (Sodium Chloride Flush Syringe 10 Ml) 10 ml IV BID [facility] Last Admin: 08/07/19 11:29 Dose: Not Given Documented by: Sodium Chloride (Sodium Chloride Flush Syringe 10 Ml) 10 ml IV PRN PRN PRN Reason: LINE FLUSH Physical Examination Vital signs: Vital Signs Temp Pulse Resp BP Pulse Ox 97.8 F 83 20 139/82 91 08/06/19 08:03 08/06/19 08:03 08/06/19 08:03 08/06/19 08:03 08/06/19 08:03 Results - Laboratory Findings CBC and BMP: 08/07/19 04:53 08/07/19 04:53 ABG POC ABG pH 7.226 (7.35-7.45) L 08/06/19 17:10 POC ABG pO2 69 (80-105) L 08/06/19 17:10 POC ABG HCO3 41.1 (22-26 mml/L) 08/06/19 17:10 POC ABG Total CO2 44 (23-27mmol/L) 08/06/19 17:10 POC ABG O2 Sat 88 08/06/19 17:10 PT/INR, D-dimer PT 13.4 Sec. (12.2-14.9) 08/06/19 08:30 INR 1.01 (0.87-1.13) 08/06/19 08:30 D-Dimer 1544.61 ng/mlDDU (0-234) H 08/06/19 08:30 Abnormal lab findings: Abnormal Labs 08/06/19 08/06/19 08/06/19 08:16 08:30 08:30 Hgb 14.6 H Hct MCV 101 H MCH 35 H Lymph % (Auto) 10.9 L Lymph # 0.5 L Seg Neutrophils % 78.5 H D-Dimer 1544.61 H POC ABG pH POC ABG pO2 Sodium 135 L Chloride 92.3 L Carbon Dioxide 31 H Creatinine 0.6 L Glucose 107 H Calcium CK-MB (CK-2) Rel Index 6.6 H NT-Pro-B Natriuret Pep 3227 H Albumin 08/06/19 08/07/19 08/07/19 17:10 04:53 04:53 Hgb Hct 43.3 H MCV 103 H MCH 34 H Lymph % (Auto) 8.3 L Lymph # 0.4 L Seg Neutrophils % 82.6 H D-Dimer POC ABG pH 7.226 L POC ABG pO2 69 L Sodium Chloride 91.8 L Carbon Dioxide 33 H Creatinine 0.5 L Glucose Calcium 8.2 L CK-MB (CK-2) Rel Index NT-Pro-B Natriuret Pep Albumin 3.2 L - Diagnostic Findings Chest x-ray: image reviewed CT scan - chest: image reviewed Assessment and Plan 84 y/o with ILD, admitted with respiratory failure and likely some volume overload. 1. Agree with BID lasix 2. Added steroid therapy today, if improvement, will start to taper tomorrow 3. Consider atypical coverage with macrolide or levaquin if concerned for pneumonia.
[2019-08-07] MEDS: BENZONATATE 100 MG CAP PO SCH ×2 (18:50→21:52)
[2019-08-07] MEDS: cefTRIAXone/NS 1 GM/50 ML 1 GM/50 ML BAG IV SCH (19:58)
[2019-08-07] MEDS ORDERED: rOPINIRole 1 MG TAB PO SCH ×2 (22:00→22:21)
[2019-08-07] MEDS: guaiFENesin ER 600 MG TAB PO SCH (22:09)
[2019-08-08] MEDS: ACETAMINOPHEN 325 MG TAB PO PRN ×3 (01:35→21:36)
[2019-08-08 05:41] LABS: Hematocrit 42.8 % (30.3-42.9); Hemoglobin 14.8 gm/dl (10.1-14.3); Mean Corpuscular HGB Conc 35 % (30-34); Mean Corpuscular Volume 101 fl (79-97); Platelet Count 197 K/mm3 (140-440); Red Blood Count 4.25 M/mm3 (3.65-5.03); Red Cell Distribution Width 14.1 % (13.2-15.2)
[2019-08-08] MEDS: BENZONATATE 100 MG CAP PO SCH ×3 (06:00→21:36)
[2019-08-08 06:23] LABS: BUN/Creatinine Ratio 28; Blood Urea Nitrogen 14 mg/dL (7-17); Calcium 8.1 mg/dL (8.4-10.2); Hemolysis Index 10
[2019-08-08] MEDS: FUROSEMIDE 20 MG/2 ML INJ IV SCH ×2 (06:44→19:04)
[2019-08-08] MEDS: methylPREDNISolone Sod Succinate 125 MG/2 ML INJ IV SCH (06:44)
--- NOTE | 2019-08-08 08:27 | Progress Note ---
Assessment and Plan Assessment and plan: Patient is a 84 yo woman with a history of chronic hypoxic Respiratory Failure on Home Oxygen, COPD, Severe Malnutrition, CHF, hydronephrosis s/p Kidney stent and Nicotine Dependence who presents to ED for SOB. * CTA chest IMPRESSION: 1. No CT evidence for large central pulmonary embolus 2. Cardiomegaly with moderate interstitial prominence likely secondary to interstitial edema 3. Osteopenia with multiple old compression fractures of thoracolumbar spine Acute and chronic respiratory failure -Admitted to IMCU, supplemental oxygen, nebulizer therapy, NIPPV as clinically i ndicated, pulse oximetry, chest x ray, CT angio chest reviewed, pulmonary consulted, ABG, Pulmonary Edema with Acute on chronic Diastolic heart failure -iv lasix BID -ECHO reviewed -monitor BMP -prenatal genetic counselor on compliance, she takes lasix prn/sporadic Pulmonary fibrosis -CTA chest reviewed, no PE, IV steroid therapy, pulmonary consulted, Pulmonary hypertension -Pulmonology is following Advance care planning -Pt is full code, Nicotine dependence -supportive care, smoking cessation counseling +15min DVT prophylaxis -SCD to BLE while in bed, Prophylactic heparin Disposition: continue inpatient care, try to wean down to 2 liters, now on 5 li ters, wean down iv steroids/lasix CCT 31 minutes History Interval history: Patient was seen and examined. Follow-up on current diagnosis. No overnight events reported to me. Patient denies any chest pain, shortness breath, nausea/vomiting or severe headaches. Imaging, nursing note, chart, labs and old chart reviewed. Discussed with patient. Son, Elías at bedside, bipap removed this morning, on 6 liters. Hospitalist Physical - Physical exam Narrative exam: Gen: thin cachetic, moderate increase accessory muscles, Awake, Alert, Orientated HEENT: NCAT, EOMI, PERRL, OP Clear Neck: supple, no adenopathy, no thyromegaly, no JVD CVS/Heart: RRR, normal S1S2, pulses present bilaterally Chest/Lungs: diminished and bilateral crackles, Symmetrical chest expansion, good air entry bilaterally GI/Abdomen: soft, NTND, good bowel sounds, no guarding or rebound /Bladder: no suprapubic tenderness, no CVA or paraspinal tenderness Extermity/Skin: no c/c/e, no obvious rash MSK: FROM x 4 Neuro: CN 2-12 grossly intact, no new focal deficits Psych: calm - Constitutional Vitals: Temp Pulse Resp BP Pulse Ox 97.4 F L 95 H 12 120/55 100 08/08/19 04:00 08/07/19 18:40 08/07/19 18:40 08/07/19 18:40 08/07/19 20:33 General appearance: Present: no acute distress Results - Labs CBC & Chem 7: 08/08/19 04:05 08/08/19 04:05 Labs: Laboratory Last Values WBC 4.4 K/mm3 (4.5-11.0) L 08/08/19 04:05 RBC 4.25 M/mm3 (3.65-5.03) 08/08/19 04:05 Hgb 14.8 gm/dl (10.1-14.3) H 08/08/19 04:05 Hct 42.8 % (30.3-42.9) 08/08/19 04:05 MCV 101 fl (79-97) H 08/08/19 04:05 MCH 35 pg (28-32) H 08/08/19 04:05 MCHC 35 % (30-34) H 08/08/19 04:05 RDW 14.1 % (13.2-15.2) 08/08/19 04:05 Plt Count 197 K/mm3 (140-440) 08/08/19 04:05 Lymph % (Auto) 8.3 % (13.4-35.0) L 08/07/19 04:53 [place] % (Auto) 6.7 % (0.0-7.3) 08/07/19 04:53 Eos % (Auto) 1.7 % (0.0-4.3) 08/07/19 04:53 Baso % (Auto) 0.7 % (0.0-1.8) 08/07/19 04:53 Lymph # 0.4 K/mm3 (1.2-5.4) L 08/07/19 04:53 [place] # 0.3 K/mm3 (0.0-0.8) 08/07/19 04:53 Eos # 0.1 K/mm3 (0.0-0.4) 08/07/19 04:53 Baso # 0.0 K/mm3 (0.0-0.1) 08/07/19 04:53 Seg Neutrophils % 82.6 % (40.0-70.0) H 08/07/19 04:53 Seg Neutrophils # 3.8 K/mm3 (1.8-7.7) 08/07/19 04:53 PT 13.4 Sec. (12.2-14.9) 08/06/19 08:30 INR 1.01 (0.87-1.13) 08/06/19 08:30 APTT 33.3 Sec. (24.2-36.6) 08/06/19 08:30 D-Dimer 1544.61 ng/mlDDU (0-234) H 08/06/19 08:30 POC ABG pH 7.226 (7.35-7.45) L 08/06/19 17:10 POC ABG pO2 69 (80-105) L 08/06/19 17:10 POC ABG HCO3 41.1 (22-26 mml/L) 08/06/19 17:10 POC ABG Total CO2 44 (23-27mmol/L) 08/06/19 17:10 POC ABG O2 Sat 88 08/06/19 17:10 POC ABG Base Excess 13 ((-2) - (+3)mmol/L) 08/06/19 17:10 FiO2 35 % 08/06/19 17:10 Sodium 138 mmol/L (137-145) 08/08/19 04:05 Potassium 4.4 mmol/L (3.6-5.0) 08/08/19 04:05 Chloride 91.4 mmol/L (98-107) L 08/08/19 04:05 Carbon Dioxide 31 mmol/L (22-30) H 08/08/19 04:05 Anion Gap 20 mmol/L 08/08/19 04:05 BUN 14 mg/dL (7-17) 08/08/19 04:05 Creatinine 0.5 mg/dL (0.7-1.2) L 08/08/19 04:05 Estimated GFR > 60 ml/min 08/08/19 04:05 BUN/Creatinine Ratio 28 % 08/08/19 04:05 Glucose 128 mg/dL (65-100) H 08/08/19 04:05 Calcium 8.1 mg/dL (8.4-10.2) L 08/08/19 04:05 Magnesium 2.20 mg/dL (1.7-2.3) 08/06/19 17:02 Total Bilirubin 0.60 mg/dL (0.1-1.2) 08/07/19 04:53 Direct Bilirubin < 0.2 mg/dL (0-0.2) 08/06/19 08:30 AST 22 units/L (5-40) 08/07/19 04:53 ALT 16 units/L (7-56) 08/07/19 04:53 Alkaline Phosphatase 109 units/L (35-129) 08/07/19 04:53 Total Creatine Kinase 50 units/L (30-135) 08/06/19 08:30 CK-MB (CK-2) 3.3 ng/mL (0.0-4.0) 08/06/19 08:30 CK-MB (CK-2) Rel Index 6.6 (0-4) H 08/06/19 08:30 Troponin T < 0.010 ng/mL (0.00-0.029) 08/06/19 17:02 NT-Pro-B Natriuret Pep 3227 pg/mL (0-900) H 08/06/19 08:30 Total Protein 6.5 g/dL (6.3-8.2) 08/07/19 04:53 Albumin 3.2 g/dL (3.9-5) L 08/07/19 04:53 Albumin/Globulin Ratio 1.0 % 08/07/19 04:53 TSH 1.220 mlU/mL (0.270-4.200) 08/06/19 17:02 Free T4 1.15 ng/dL (0.76-1.46) 08/06/19 17:02 Active Medications - Current Medications Current Medications: Generic Name Dose Route Start Last Admin Trade Name Freq PRN Reason Stop Dose Admin Acetaminophen 650 mg 08/08/19 01:18 08/08/19 01:35 Tylenol PO 650 mg Q4H PRN Administration Pain, Mild (1-3) Benzonatate 100 mg 08/07/19 18:00 08/07/19 21:52 Tessalon Perles PO Not Given Q8HR MIKEL Furosemide 20 mg 08/06/19 18:00 08/08/19 06:44 Lasix IV 20 mg BID@0600,1800 MIKEL Administration Guaifenesin 600 mg 08/07/19 22:00 08/07/19 22:09 Mucinex Er PO 600 mg BID MIKEL Administration Heparin Sodium (Porcine) 5,000 unit 08/06/19 22:00 08/07/19 22:09 Heparin SUB-Q 5,000 unit Q12HR MIKEL Administration Ceftriaxone Sodium 1 gm in 50 mls @ 100 mls/hr 08/07/19 18:00 08/07/19 19:58 Rocephin/Ns 1 Gm/50 Ml IV 100 mls/hr Q24HR MIKEL Administration Protocol Methylprednisolone Sodium Succinate 60 mg 08/07/19 14:00 08/08/19 06:44 Solu-Medrol IV 60 mg Q8HR MIKEL Administration Ropinirole HCl 1 mg 08/07/19 22:00 08/08/19 00:06 Requip PO 1 mg QHS MIKEL Administration Sodium Chloride 10 ml 08/06/19 22:00 08/07/19 22:09 Sodium Chloride Flush Syringe 10 Ml IV 10 ml BID MIKEL Administration Sodium Chloride 10 ml 08/06/19 13:54 Sodium Chloride Flush Syringe 10 Ml IV PRN PRN LINE FLUSH Nutrition/Malnutrition Assess - Dietary Evaluation Nutrition/Malnutrition Findings: Nutrition Notes Start: 08/07/19 10:24 Freq: Status: Active Protocol: Document 08/07/19 10:24 CT (Rec: 08/07/19 10:37 CT [id number]) Co-Sign 08/07/19 10:24 Nutrition Notes 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 Pt stated UBW is 125 lbs and has not noticed any wt loss. 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 Per RN, waiting on MD to advance diet, gave recommendation for cardiac diet with ensure chocolate BID . Pt last ate a meal on Tuesday for lunch and has a good appetite, stating that she is hungry. Noted severe clavicle wasting and temporal and orbital wasting. Pt stated that if she has her dentures, she has no issues chewing. Pt son stated pt drinks around 2 ensure every day at home, pt stated she wanted ensure. Burn Absent Trauma Absent GI Symptoms None Food Allergy No Current % PO Negligible Minimum of two criteria Yes Body Fat Depletion Moderate depletion (severe) Muscle Mass Moderate Depletion (severe) #1 Nutrition Diagnosis Malnutrition Etiology advanced age As Evidenced by Signs and Symptoms severe muscle and moderate fat depletion Is patient on ventilator? No Is Patient Ambulatory and/or Out of Bed Yes REE-([facility]-ambulatory/OOB) [ 1403.519 NUTR.[id number]] Calculation Used for Recommendations [facility] Additional Notes Protein needs: 75-88 g/kg/day (1.2-1.5 g/kg/day) Fluid needs: 1 ml/kcal/day Nutrition Intervention Change Diet Order: Diet advancement to cardiac diet once medically feasible Add Supplement/Snack (indicate name/kcal Add Ensure chocolate BID once /protein ) diet advances Provides kCal: 700 Provides Protein (gm) 40 Goal #1 Meet >75% of energy and protein needs Goal #2 wt maintenance Anticipated Discharge Needs: cardiac with ONS PRN Follow-Up By: 08/09/19 Additional Comments Follow up for diet advancement , PO/ONS intakes Order Ensure chocolate BID
[2019-08-08] MEDS: cefTRIAXone/NS 1 GM/50 ML 1 GM/50 ML BAG IV SCH (10:36)
[2019-08-08] MEDS: HEPARIN 5,000 UNIT/1 ML VIAL SUB-Q SCH ×2 (10:36→21:37)
[2019-08-08] MEDS: guaiFENesin ER 600 MG TAB PO SCH ×2 (10:37→21:36)
--- NOTE | 2019-08-08 11:29 | Progress Note ---
<BEN GOSS - Last Filed: 08/08/19 13:43> Assessment and Plan Hypoxic respiratory failure chest CTA: low probability for PE Hx of pulmonary fibrosis Echocardiogram done this admission reports pulmonary hypertension, RVSP 70 mmHg. Normal left ventricular systolic function, EF 50-55%. Pulmonary for management of shortness of breath, pulmonary hypertension and chronic pulmonary fibrosis. Otherwise conservative cardiac management. We will sign off. Re-consult if needed. Subjective Date of service: 08/08/19 Interval history: Patient is sitting up in bedside chair. Stable sinus rhythm on telemetry. Objective Vital Signs Temp Pulse Resp BP Pulse Ox 08/08/19 10:56 96 08/08/19 09:10 82 14 116/53 96 08/08/19 09:00 90 17 116/53 96 08/08/19 08:50 83 16 116/51 97 08/08/19 08:40 90 15 116/51 97 08/08/19 08:30 89 24 100/50 97 08/08/19 08:20 95 H 20 100/50 08/08/19 08:10 72 15 100/50 97 08/08/19 08:00 97.9 F 71 15 100/50 100 08/08/19 07:50 80 18 107/59 100 08/08/19 07:40 71 13 107/59 99 08/08/19 07:30 77 18 104/41 98 08/08/19 07:20 71 14 104/41 98 08/08/19 07:10 79 20 104/41 08/08/19 07:00 90 20 86/40 87 08/08/19 06:50 82 16 86/40 97 08/08/19 06:40 83 22 86/40 98 08/08/19 06:30 80 17 86/40 98 08/08/19 06:20 84 18 86/40 95 08/08/19 06:10 79 23 86/40 98 08/08/19 06:00 75 16 86/40 96 08/08/19 05:50 73 18 104/50 98 08/08/19 05:40 70 19 104/50 98 08/08/19 05:30 73 20 104/50 98 08/08/19 05:20 75 26 H 104/50 97 08/08/19 05:10 90 26 H 104/50 96 12/18/19 05:00 84 19 104/50 95 18/19 04:50 82 18 95/43 95 1218/19 04:40 86 21 95/43 1218/19 04:30 90 16 95/43 18/19 04:20 78 17 95/43 96 18/19 04:10 81 13 95/43 18/19 04:00 97.4 F L 79 14 95/43 96 18/ 03:50 80 15 93/46 18/19 03:40 74 16 93/46 18/19 03:30 78 17 93/46 91 18/19 03:20 80 15 93/46 18/19 03:10 77 19 93/46 86 18/ 03:00 78 14 93/46 98 18/ 02:50 73 16 107/73 98 18/ 02:40 75 17 107/73 99 18/ 02:30 71 12 107/73 98 18/ 02:20 73 15 107/73 98 18/ 02:10 78 10 L 107/73 100 18/ 02:00 77 18 115/61 98 18/19 01:50 83 18 115/61 18/19 01:40 101 H 28 H 115/61 91 18/19 01:30 75 14 115/61 98 18/19 01:20 83 16 115/61 99 18/19 01:10 89 15 115/61 96 18/19 01:00 81 17 115/61 96 18/19 00:00 19 93 08/07/ 23:53 97.7 F 17/19 20:33 100 17/19 20:00 97.8 F 80 19 93 1217/19 18:40 95 H 12 120/55 96 17/19 18:30 90 19 120/55 97 17/19 18:20 101 H 24 120/55 17/19 18:10 102 H 17 120/55 17/19 18:00 94 H 21 120/55 17/19 17:50 100 H 23 118/58 78 L 08/07/19 17:40 74 16 118/58 99 08/07/19 17:30 87 22 118/58 95 12/17/19 17:20 84 13 118/58 99 08/07/19 17:10 92 H 20 118/58 93 08/07/19 17:00 90 20 118/58 93 08/07/19 16:50 83 19 118/55 92 08/07/19 16:40 86 20 118/55 96 08/07/19 16:30 86 21 118/55 98 08/07/19 16:20 84 23 118/55 95 08/07/19 16:10 81 20 118/55 96 08/07/19 16:00 98.3 F 83 22 125/58 91 08/07/19 15:50 84 19 125/58 97 08/07/19 15:40 81 20 125/58 95 08/07/19 15:30 82 22 125/58 97 08/07/19 15:20 75 20 125/58 91 08/07/19 15:10 87 32 H 125/58 91 08/07/19 15:00 84 23 125/58 08/07/19 14:50 85 22 89/60 88 08/07/19 14:40 80 20 89/60 97 08/07/19 14:30 89 23 89/60 83 L 08/07/19 14:20 90 21 89/60 88 08/07/19 14:10 80 22 89/60 99 08/07/19 14:00 79 16 89/60 72 L 08/07/19 13:50 95 H 16 89/60 08/07/19 13:40 84 15 89/60 08/07/19 13:30 83 17 89/60 08/07/19 13:20 87 19 89/60 08/07/19 13:10 90 16 89/60 85 08/07/19 13:00 85 20 114/43 93 08/07/19 12:50 87 18 114/43 86 08/07/19 12:40 79 16 114/43 90 08/07/19 12:30 95 H 15 114/43 91 08/07/19 12:20 92 H 20 114/43 08/07/19 12:10 94 H 16 114/43 92 08/07/19 12:00 97.6 F 92 H 12 126/63 93 08/07/19 11:50 102 H 24 126/63 90 08/07/19 11:40 99 H 15 126/63 96 08/07/19 11:30 98 H 32 H 126/63 96 - Physical Examination HEENT: Positive: PERRL Neck: Positive: trachea midline - Labs and Meds CBC 08/08/19 Range/Units 04:05 WBC 4.4 L (4.5-11.0) K/mm3 RBC 4.25 (3.65-5.03) M/mm3 Hgb 14.8 H (10.1-14.3) gm/dl Hct 42.8 (30.3-42.9) % Plt Count 197 (140-440) K/mm3 Comprehensive Metabolic Panel 08/08/19 Range/Units 04:05 Sodium 138 (137-145) mmol/L Potassium 4.4 (3.6-5.0) mmol/L Chloride 91.4 L (98-107) mmol/L Carbon Dioxide 31 H (22-30) mmol/L BUN 14 (7-17) mg/dL Creatinine 0.5 L (0.7-1.2) mg/dL Glucose 128 H (65-100) mg/dL Calcium 8.1 L (8.4-10.2) mg/dL <ALLY AVILES - Last Filed: 08/14/19 23:33> Assessment and Plan I have seen and evaluated the patient and agree with the assessment and plan.
[2019-08-08] MEDS ORDERED: methylPREDNISolone Sod Succinate 125 MG/2 ML INJ IV SCH (12:03)
--- NOTE | 2019-08-08 12:03 | Progress Note ---
Assessment and Plan 84 y/o with ILD, admitted with respiratory failure and likely some volume overload. 1. Agree with BID lasix 2. Will start to taper steroids today. 3. Consider atypical coverage with macrolide or levaquin if concerned for pneumonia. Subjective Date of service: 08/08/19 Interval history: Down to 4 liters NC. Stable. No further bipap use Objective Vital Signs - 12hr 08/08/19 08/08/19 08/08/19 01:00 01:10 01:20 Temperature Pulse Rate 81 89 83 Respiratory 17 15 16 Rate Blood Pressure 115/61 115/61 115/61 O2 Sat by Pulse 96 96 99 Oximetry 08/08/19 08/08/19 08/08/19 01:30 01:40 01:50 Temperature Pulse Rate 75 101 H 83 Respiratory 14 28 H 18 Rate Blood Pressure 115/61 115/61 115/61 O2 Sat by Pulse 98 91 Oximetry 08/08/19 08/08/19 08/08/19 02:00 02:10 02:20 Temperature Pulse Rate 77 78 73 Respiratory 18 10 L 15 Rate Blood Pressure 115/61 107/73 107/73 O2 Sat by Pulse 98 100 98 Oximetry 08/08/19 08/08/19 08/08/19 02:30 02:40 02:50 Temperature Pulse Rate 71 75 73 Respiratory 12 17 16 Rate Blood Pressure 107/73 107/73 107/73 O2 Sat by Pulse 98 99 98 Oximetry 08/08/19 08/08/19 08/08/19 03:00 03:10 03:20 Temperature Pulse Rate 78 77 80 Respiratory 14 19 15 Rate Blood Pressure 93/46 93/46 93/46 O2 Sat by Pulse 98 86 Oximetry 08/08/19 08/08/19 08/08/19 03:30 03:40 03:50 Temperature Pulse Rate 78 74 80 Respiratory 17 16 15 Rate Blood Pressure 93/46 93/46 93/46 O2 Sat by Pulse 91 Oximetry 08/08/19 08/08/19 08/08/19 04:00 04:10 04:20 Temperature 97.4 F L Pulse Rate 79 81 78 Respiratory 14 13 17 Rate Blood Pressure 95/43 95/43 95/43 O2 Sat by Pulse 96 96 Oximetry 08/08/19 08/08/19 08/08/19 04:30 04:40 04:50 Temperature Pulse Rate 90 86 82 Respiratory 16 21 18 Rate Blood Pressure 95/43 95/43 95/43 O2 Sat by Pulse 95 Oximetry 08/08/19 08/08/19 08/08/19 05:00 05:10 05:20 Temperature Pulse Rate 84 90 75 Respiratory 19 26 H 26 H Rate Blood Pressure 104/50 104/50 104/50 O2 Sat by Pulse 95 96 97 Oximetry 08/08/19 08/08/19 08/08/19 05:30 05:40 05:50 Temperature Pulse Rate 73 70 73 Respiratory 20 19 18 Rate Blood Pressure 104/50 104/50 104/50 O2 Sat by Pulse 98 98 98 Oximetry 08/08/19 08/08/19 08/08/19 06:00 06:10 06:20 Temperature Pulse Rate 75 79 84 Respiratory 16 23 18 Rate Blood Pressure 86/40 86/40 86/40 O2 Sat by Pulse 96 98 95 Oximetry 08/08/19 08/08/19 08/08/19 06:30 06:40 06:50 Temperature Pulse Rate 80 83 82 Respiratory 17 22 16 Rate Blood Pressure 86/40 86/40 86/40 O2 Sat by Pulse 98 98 97 Oximetry 08/08/19 08/08/19 08/08/19 07:00 07:10 07:20 Temperature Pulse Rate 90 79 71 Respiratory 20 20 14 Rate Blood Pressure 86/40 104/41 104/41 O2 Sat by Pulse 87 98 Oximetry 08/08/19 08/08/19 08/08/19 07:30 07:40 07:50 Temperature Pulse Rate 77 71 80 Respiratory 18 13 18 Rate Blood Pressure 104/41 107/59 107/59 O2 Sat by Pulse 98 99 100 Oximetry 08/08/19 08/08/19 08/08/19 08:00 08:10 08:20 Temperature 97.9 F Pulse Rate 71 72 95 H Respiratory 15 15 20 Rate Blood Pressure 100/50 100/50 100/50 O2 Sat by Pulse 100 97 Oximetry 08/08/19 08/08/19 08/08/19 08:30 08:40 08:50 Temperature Pulse Rate 89 90 83 Respiratory 24 15 16 Rate Blood Pressure 100/50 116/51 116/51 O2 Sat by Pulse 97 97 97 Oximetry 08/08/19 08/08/19 08/08/19 09:00 09:10 10:56 Temperature Pulse Rate 90 82 Respiratory 17 14 Rate Blood Pressure 116/53 116/53 O2 Sat by Pulse 96 96 96 Oximetry CBC and BMP: 08/08/19 04:05 08/08/19 04:05 ABG, PT/INR, D-dimer: ABG POC ABG pH 7.226 (7.35-7.45) L 08/06/19 17:10 POC ABG pO2 69 (80-105) L 08/06/19 17:10 POC ABG HCO3 41.1 (22-26 mml/L) 08/06/19 17:10 POC ABG Total CO2 44 (23-27mmol/L) 08/06/19 17:10 POC ABG O2 Sat 88 08/06/19 17:10 PT/INR, D-dimer PT 13.4 Sec. (12.2-14.9) 08/06/19 08:30 INR 1.01 (0.87-1.13) 08/06/19 08:30 D-Dimer 1544.61 ng/mlDDU (0-234) H 08/06/19 08:30 Abnormal lab findings: Abnormal Labs 08/06/19 08/06/19 08/06/19 08:16 08:30 08:30 WBC Hgb 14.6 H Hct MCV 101 H MCH 35 H MCHC Lymph % (Auto) 10.9 L Lymph # 0.5 L Seg Neutrophils % 78.5 H D-Dimer 1544.61 H POC ABG pH POC ABG pO2 Sodium 135 L Chloride 92.3 L Carbon Dioxide 31 H Creatinine 0.6 L Glucose 107 H Calcium CK-MB (CK-2) Rel Index 6.6 H NT-Pro-B Natriuret Pep 3227 H Albumin 08/06/19 08/07/19 08/07/19 17:10 04:53 04:53 WBC Hgb Hct 43.3 H MCV 103 H MCH 34 H MCHC Lymph % (Auto) 8.3 L Lymph # 0.4 L Seg Neutrophils % 82.6 H D-Dimer POC ABG pH 7.226 L POC ABG pO2 69 L Sodium Chloride 91.8 L Carbon Dioxide 33 H Creatinine 0.5 L Glucose Calcium 8.2 L CK-MB (CK-2) Rel Index NT-Pro-B Natriuret Pep Albumin 3.2 L 08/08/19 08/08/19 04:05 04:05 WBC 4.4 L Hgb 14.8 H Hct MCV 101 H MCH 35 H MCHC 35 H Lymph % (Auto) Lymph # Seg Neutrophils % D-Dimer POC ABG pH POC ABG pO2 Sodium Chloride 91.4 L Carbon Dioxide 31 H Creatinine 0.5 L Glucose 128 H Calcium 8.1 L CK-MB (CK-2) Rel Index NT-Pro-B Natriuret Pep Albumin
[2019-08-08] MEDS: methylPREDNISolone Sod Succinate 40 MG/1 ML INJ IV SCH ×2 (15:27→21:37)
[2019-08-08] MEDS ORDERED: rOPINIRole 1 MG TAB PO SCH (22:00)
[2019-08-09] MEDS: FUROSEMIDE 20 MG/2 ML INJ IV SCH (05:07)
[2019-08-09] MEDS: BENZONATATE 100 MG CAP PO SCH ×2 (05:07→14:38)
[2019-08-09] MEDS: methylPREDNISolone Sod Succinate 40 MG/1 ML INJ IV SCH ×2 (05:07→14:38)
[2019-08-09 05:36] LABS: Hemoglobin 14.6 gm/dl (10.1-14.3); Mean Corpuscular HGB Conc 34 % (30-34); Mean Corpuscular Volume 102 fl (79-97); Platelet Count 177 K/mm3 (140-440); Red Blood Count 4.23 M/mm3 (3.65-5.03); Red Cell Distribution Width 14.2 % (13.2-15.2)
[2019-08-09 06:00] LABS: BUN/Creatinine Ratio 30; Blood Urea Nitrogen 15 mg/dL (7-17); Calcium 8.2 mg/dL (8.4-10.2); Hemolysis Index 90
[2019-08-09] MEDS ORDERED: AZITHROMYCIN 500 MG in SODIUM CHLORIDE 0.9% 250ML 250 ML IV SCH (10:00)
[2019-08-09] MEDS: cefTRIAXone/NS 1 GM/50 ML 1 GM/50 ML BAG IV SCH (10:21)
[2019-08-09] MEDS: guaiFENesin ER 600 MG TAB PO SCH (10:42)
[2019-08-09] MEDS: HEPARIN 5,000 UNIT/1 ML VIAL SUB-Q SCH (10:42)
[2019-08-09] MEDS: ACETAMINOPHEN 325 MG TAB PO PRN (12:07)
--- NOTE | 2019-08-09 12:15 | Progress Note ---
Assessment and Plan 84 y/o with ILD, admitted with respiratory failure and likely some volume overload. 1. Agree with BID lasix 2. Tomorrow can start Prednisone 60 daily and taper over 2 week time period 3. Macrolide added today. 4. Can likely be discharged in the next 18-24 hours. No objection to discharge tomorrow. Recs would not change unless there was a change clinically. Will address elevated RVSP as an out patient. Subjective Date of service: 08/09/19 Interval history: No acute events. Reviewed cardiology note from yesterday. Objective Vital Signs - 12hr 08/09/19 08/09/19 08/09/19 01:00 02:00 03:00 Temperature Pulse Rate 75 73 78 Pulse Rate [ From Monitor] Respiratory 19 12 13 Rate Blood Pressure 116/58 102/49 113/61 O2 Sat by Pulse 99 96 97 Oximetry 08/09/19 08/09/19 08/09/19 04:00 05:01 06:00 Temperature 97.8 F Pulse Rate 73 93 H 74 Pulse Rate [ 94 H From Monitor] Respiratory 22 20 14 Rate Blood Pressure 116/62 102/63 104/45 O2 Sat by Pulse 98 96 97 Oximetry 08/09/19 08/09/19 08:00 08:34 Temperature 98.0 F Pulse Rate Pulse Rate [ From Monitor] Respiratory Rate Blood Pressure O2 Sat by Pulse 97 Oximetry CBC and BMP: 08/09/19 04:36 08/09/19 04:36 ABG, PT/INR, D-dimer: ABG POC ABG pH 7.226 (7.35-7.45) L 08/06/19 17:10 POC ABG pO2 69 (80-105) L 08/06/19 17:10 POC ABG HCO3 41.1 (22-26 mml/L) 08/06/19 17:10 POC ABG Total CO2 44 (23-27mmol/L) 08/06/19 17:10 POC ABG O2 Sat 88 08/06/19 17:10 PT/INR, D-dimer PT 13.4 Sec. (12.2-14.9) 08/06/19 08:30 INR 1.01 (0.87-1.13) 08/06/19 08:30 D-Dimer 1544.61 ng/mlDDU (0-234) H 08/06/19 08:30 Abnormal lab findings: Abnormal Labs 08/06/19 08/06/19 08/06/19 08:16 08:30 08:30 WBC Hgb 14.6 H Hct MCV 101 H MCH 35 H MCHC Lymph % (Auto) 10.9 L Lymph # 0.5 L Seg Neutrophils % 78.5 H D-Dimer 1544.61 H POC ABG pH POC ABG pO2 Sodium 135 L Chloride 92.3 L Carbon Dioxide 31 H Creatinine 0.6 L Glucose 107 H Calcium CK-MB (CK-2) Rel Index 6.6 H NT-Pro-B Natriuret Pep 3227 H Albumin 08/06/19 08/07/19 08/07/19 17:10 04:53 04:53 WBC Hgb Hct 43.3 H MCV 103 H MCH 34 H MCHC Lymph % (Auto) 8.3 L Lymph # 0.4 L Seg Neutrophils % 82.6 H D-Dimer POC ABG pH 7.226 L POC ABG pO2 69 L Sodium Chloride 91.8 L Carbon Dioxide 33 H Creatinine 0.5 L Glucose Calcium 8.2 L CK-MB (CK-2) Rel Index NT-Pro-B Natriuret Pep Albumin 3.2 L 08/08/19 08/08/19 08/09/19 04:05 04:05 04:36 WBC 4.4 L Hgb 14.8 H 14.6 H Hct 43.0 H MCV 101 H 102 H MCH 35 H 34 H MCHC 35 H Lymph % (Auto) Lymph # Seg Neutrophils % D-Dimer POC ABG pH POC ABG pO2 Sodium Chloride 91.4 L Carbon Dioxide 31 H Creatinine 0.5 L Glucose 128 H Calcium 8.1 L CK-MB (CK-2) Rel Index NT-Pro-B Natriuret Pep Albumin 08/09/19 04:36 WBC Hgb Hct MCV MCH MCHC Lymph % (Auto) Lymph # Seg Neutrophils % D-Dimer POC ABG pH POC ABG pO2 Sodium Chloride 91.9 L Carbon Dioxide 32 H Creatinine 0.5 L Glucose 133 H Calcium 8.2 L CK-MB (CK-2) Rel Index NT-Pro-B Natriuret Pep Albumin
--- NOTE | 2019-08-09 14:52 | Discharge Summary ---
Providers - Providers Date of Admission: 08/06/19 13:54 Date of discharge: 08/09/19 Attending physician: JUAN CLARK 08/06/19 20:50 Consult to Physician [CONS] Routine Comment: Consulting Provider: GUERLINE ENRIQUEZ Physician Instructions: Reason For Exam: PUlmonary fibrosis Primary care physician: DENISE SEGURA Hospitalization Condition: Stable Hospital course: Patient is a 84 yo woman with a history of chronic hypoxic Respiratory Failure on Home Oxygen, COPD, Severe Malnutrition, CHF, hydronephrosis s/p Kidney stent and Nicotine Dependence who presents to ED for SOB. * CTA chest IMPRESSION: 1. No CT evidence for large central pulmonary embolus 2. Cardiomegaly with moderate interstitial prominence likely secondary to interstitial edema 3. Osteopenia with multiple old compression fractures of thoracolumbar spine Discharge Diagnoses: Acute and chronic respiratory failure -Admitted to IMCU, supplemental oxygen, nebulizer therapy, NIPPV as clinically indicated, pulse oximetry, chest x ray, CT angio chest reviewed, pulmonary consulted, ABG, Pulmonary Edema with Acute on chronic Diastolic heart failure -iv lasix BID -ECHO reviewed -monitor BMP -auto travel counselor on compliance, she takes lasix prn/sporadic Pulmonary fibrosis -CTA chest reviewed, no PE, IV steroid therapy, pulmonary consulted, Pulmonary hypertension -Pulmonology is following Advance care planning -Pt is full code, Nicotine dependence -supportive care, smoking cessation counseling done DVT prophylaxis -SCD to BLE while in bed, Prophylactic heparin Disposition: DC-01 TO HOME OR SELFCARE Time spent for discharge: 34 minutes Core Measure Documentation - Palliative Care Palliative Care/ Comfort Measures: Not Applicable - Core Measures Any of the following diagnoses?: none - VTE Discharge Requirements Deep Vein Thrombosis/Pulmonary Embolism Present on Admission: No Has pt received <5 days of overlap therapy or INR<2.0: No Anticoagulant overlap therapy prescribed at discharge: No Contraindication No Overlap Therapy order at DC: Not Indicated Exam - Physical Exam Narrative exam: Gen: thin cachetic, moderate increase accessory muscles, Awake, Alert, Orientated HEENT: NCAT, EOMI, PERRL, OP Clear Neck: supple, no adenopathy, no thyromegaly, no JVD CVS/Heart: RRR, normal S1S2, pulses present bilaterally Chest/Lungs: much improved bs, Symmetrical chest expansion, good air entry bilaterally GI/Abdomen: soft, NTND, good bowel sounds, no guarding or rebound /Bladder: no suprapubic tenderness, no CVA or paraspinal tenderness Extermity/Skin: no c/c/e, no obvious rash MSK: FROM x 4 Neuro: CN 2-12 grossly intact, no new focal deficits Psych: calm - Constitutional Vitals: Temp Pulse Resp BP Pulse Ox 98.9 F 92 H 15 114/62 98 08/09/19 12:00 08/09/19 14:00 08/09/19 14:00 08/09/19 14:00 08/09/19 12:00 Plan Activity: other (no strenous activity) Diet: low salt Special Instructions: smoking cessation Follow up with: GUERLINE ENRIQUEZ MD [Staff Physician] - 7 Days PRIMARY CAREMD [Referring] - 3-5 Days ROSALINA MORFIN MD [Staff Physician] - 7 Days Prescriptions: predniSONE [Deltasone] 1 dose PO QDAY #69 tab Furosemide [Lasix] 20 mg PO BID #60 tablet levoFLOXacin [Levaquin] 750 mg PO QDAY #5 tablet guaiFENesin ER [Mucinex ER] 600 mg PO BID PRN #30 tablet PRN Reason: Cough Benzonatate [Tessalon Perles] 100 mg PO Q8HR PRN #15 capsule PRN Reason: Cough
[2019-08-09 15:18] VITALS: BP 117/61
== END 2019-08-09 15:20 | disposition home health service (06) | DRG 196 ==
LOC: ED 07:50 → IMCU 13:54
PROVIDERS: ADMIT Internal Medicine; ATTEND Internal Medicine
PROC: 4A033R1 Measurement of Arterial Saturation, Peripheral, Percutaneous Approach (ICD-10-PCS; principal; 2019-08-06)
PROC: 5A09357 Assistance with Respiratory Ventilation, Less than 24 Consecutive Hours, Continuous Positive Airway Pressure (ICD-10-PCS; 2019-08-06)
PROC: 5A09357 Assistance with Respiratory Ventilation, Less than 24 Consecutive Hours, Continuous Positive Airway Pressure (ICD-10-PCS; 2019-08-07)
DX: J84.10 Pulmonary fibrosis, unspecified (principal); I50.33 Acute on chronic diastolic (congestive) heart failure; J96.21 Acute and chronic respiratory failure with hypoxia; E43 Unspecified severe protein-calorie malnutrition; F17.203 Nicotine dependence unspecified, with withdrawal; J44.9 Chronic obstructive pulmonary disease, unspecified; I27.20 Pulmonary hypertension, unspecified; Z99.81 Dependence on supplemental oxygen; Z68.20 Body mass index [BMI] 20.0-20.9, adult; Z71.6 Tobacco abuse counseling; Z82.49 Family history of ischemic heart disease and other diseases of the circulatory system
CPT/HCPCS: 36415; 36600; 71045; 71275; 78582; 80048; 80053; 80076; 82550; 82553; 82803; 83735; 83880; 84439; 84443; 84484; 85025; 85027; 85379; 85610; 85730; 93005; 93010; 93306; 94760; 96374; G0378; A9540; A9558; J0456; J0696; J1644; J1940; J2270; J2405; J2920; J2930; J7050; Q9967